=== PATIENT | female | born 1985 | race Caucasian/White ===

== ENCOUNTER → 2017-06-17 | Outpatient (CLI) | payer BC | END | disposition home or self-care (01) | LOC: CVU 12:08 | PROVIDERS: ATTEND Internal Medicine Cardiovascular Disease | DX: I31.9 Disease of pericardium, unspecified (principal); R07.9 Chest pain, unspecified; Z98.890 Other specified postprocedural states | CPT/HCPCS: 93306 ==

== ENCOUNTER → 2017-07-08 | Outpatient (CLI) | payer BC | LOC: CVU 13:48 | PROVIDERS: ATTEND Physician Assistant | DX: I31.9 Disease of pericardium, unspecified (principal) | CPT/HCPCS: 93306 ==